=== PATIENT | male | born 1945 ===

== ENCOUNTER → 2018-07-11 | Outpatient (CLI) | payer MEDICARE, OTHER ==
[~2018-07-11] VITALS: Ht 165.1 cm; Wt 58.0 kg
[~2018-07-11] MED LIST: APIX5TAB PO; ASCO500 PO; ASPI-1182 PO; DRON400T PO; INSLAN SQ; LISI-661 PO; LORA10TA7 PO; METO50 PO; OMEG10005 PO; TRAZ-220 PO
[2018-07-11 11:02] VITALS: BP 92/32
== END | disposition home or self-care (01) ==
LOC: SRCNTR 10:42
PROVIDERS: ATTEND Internal Medicine
DX: R91.8 Other nonspecific abnormal finding of lung field (principal); J44.9 Chronic obstructive pulmonary disease, unspecified; F17.200 Nicotine dependence, unspecified, uncomplicated
CPT/HCPCS: G0463